=== PATIENT | male | born 1955 | race Caucasian/White ===

== ENCOUNTER 2019-06-09 20:19 | Emergency (ER) | payer OTHER ==
[~2019-06-09] VITALS: Ht 188 cm; Wt 108.9 kg
[2019-06-09 21:32] LABS: URINE BILIRUBIN NEGATIVE (Negative); URINE BLOOD NEGATIVE (Negative); URINE CLARITY CLEAR; URINE COLOR YELLOW; URINE GLUCOSE-RANDOM* NEGATIVE (Negative); URINE KETONES NEGATIVE (Negative); URINE LEUKOCYTES-REFLEX NEGATIVE (Negative); URINE NITRITE-REFLEX NEGATIVE (Negative); URINE PROTEIN (DIPSTICK) NEGATIVE (Negative); URINE SPECIFIC GRAVITY 1.025 (1.005-1.035); URINE UROBILINOGEN 0.2 E.U./dl (0.2-1.0)
[2019-06-09 22:05] LABS: CALCIUM 9.3 mg/dL (8.5-10.1); CREATININE 1.6 mg/dL (0.7-1.3); POTASSIUM 3.7 mmol/L (3.5-5.1)
[2019-06-09 22:22] LABS: ABSOLUTE NEUTROPHILS 5.4 thou/uL (1.4-8.2); BASOPHILS 1.3 % (0.0-2.0); EOSINOPHILS 4.8 % (0.0-3.0); HEMATOCRIT 42.5 % (42.0-52.0); HEMOGLOBIN 14.4 gm/dL (14.0-18.0); LYMPHOCYTES 24.7 % (24.0-44.0); MCHC 33.8 g/dL (28.0-37.0); MCV 85.7 fL (80.0-100.0); MONOCYTES 7.5 % (1.0-8.0); PLATELET COUNT 278 thou/uL (150-400); POLYS 61.7 % (36.0-66.0); RBC 4.96 mil/uL (4.50-6.00); WBC 8.8 thou/uL (4.0-11.0)
[2019-06-09] MEDS ORDERED: MOBIC15 MG PO (22:41)
[2019-06-09] MEDS ORDERED: LIDOCAINE1 EACH TRANSDERM (22:41)
[2019-06-09 23:05] VITALS: BP 153/105
== END 2019-06-09 23:05 | disposition home or self-care (01) ==
LOC: ER 20:19
PROVIDERS: Emergency Medicine
DX: M54.5 Low back pain (principal); I10 Essential (primary) hypertension; Z88.6 Allergy status to analgesic agent

== ENCOUNTER 2020-04-04 18:13 | Emergency (ER) | payer OTHER ==
[~2020-04-04] VITALS: Ht 190.5 cm; Wt 104.3 kg
[~2020-04-04 18:13] MED LIST: LIDOCAINE1 EACH TRANSDERM; MOBIC15 MG PO
[2020-04-04 18:57] LABS: ABSOLUTE NEUTROPHILS 5.1 thou/uL (1.4-8.2); BASOPHILS 0.9 % (0.0-2.0); EOSINOPHILS 4.9 % (0.0-3.0); HEMATOCRIT 42.6 % (42.0-52.0); HEMOGLOBIN 14.3 gm/dL (14.0-18.0); LYMPHOCYTES 19.5 % (24.0-44.0); MCH 29.5 pg (26.0-34.0); MCHC 33.6 g/dL (28.0-37.0); MCV 87.7 fL (80.0-100.0); MONOCYTES 9.3 % (1.0-8.0); PLATELET COUNT 301 thou/uL (150-400); POLYS 65.4 % (36.0-66.0); RBC 4.85 mil/uL (4.50-6.00); WBC 7.8 thou/uL (4.0-11.0)
[2020-04-04 19:12] LABS: CREATININE 1.1 mg/dL (0.7-1.3)
[2020-04-04 19:17] LABS: ALBUMIN 3.4 g/dL (3.4-5.0); TOTAL BILIRUBIN 0.7 mg/dL (0.2-1.0); TOTAL PROTEIN 7.7 g/dL (6.4-8.2)
[2020-04-04] MEDS ORDERED: LISINOPRIL2.5 MG PO (20:59)
[2020-04-04] MEDS ORDERED: ASMANEX220 MC1 INH (21:00)
[2020-04-04] MEDS ORDERED: SINGULAIR 10 MG10 MG PO (21:01)
[2020-04-04] MEDS ORDERED: LEXAPRO 10 MG T10 MG PO (21:02)
[2020-04-04 21:12] LABS: URINE BILIRUBIN NEGATIVE (Negative); URINE BLOOD NEGATIVE (Negative); URINE CLARITY CLEAR; URINE COLOR YELLOW; URINE GLUCOSE-RANDOM* NEGATIVE (Negative); URINE KETONES NEGATIVE (Negative); URINE LEUKOCYTES-REFLEX NEGATIVE (Negative); URINE NITRITE-REFLEX NEGATIVE (Negative); URINE PROTEIN (DIPSTICK) NEGATIVE (Negative); URINE SPECIFIC GRAVITY 1.015 (1.005-1.035); URINE UROBILINOGEN 0.2 E.U./dl (0.2-1.0)
[2020-04-04 22:39] VITALS: BP 153/108
== END 2020-04-04 22:39 | disposition home or self-care (01) ==
LOC: ER 18:13
PROVIDERS: Emergency Medicine
DX: R10.9 Unspecified abdominal pain (principal); K62.89 Other specified diseases of anus and rectum; I10 Essential (primary) hypertension; Z79.899 Other long term (current) drug therapy; Z88.8 Allergy status to other drugs, medicaments and biological substances